=== PATIENT | male | born 1970 | race Caucasian/White ===

== ENCOUNTER 2022-03-15 09:47 | Day surgery (SDC) | payer OTHER ==
[2022-03-09 16:12] LABS: BASOPHILS # (AUTO) 0.1 X10'3 (0-0.2); EOSINOPHILS # (AUTO) 0.2 X10'3 (0-0.9); EOSINOPHILS % (AUTO) 2.5 % (0-6); LYMPHOCYTES % (AUTO) 30.4 % (21-51); MEAN CORPUSCULAR HEMOGLOBIN 31.1 PG (27.0-31.0); MEAN CORPUSCULAR HGB CONC 34.1 g/dL (33.0-36.5); MEAN CORPUSCULAR VOLUME 91.2 FL (78-98); MEAN PLATELET VOLUME 7.2 FL (7.4-10.4); MONOCYTES # (AUTO) 0.4 X10'3 (0-0.9); MONOCYTES % (AUTO) 6.5 % (2-12); NEUTROPHILS % (AUTO) 59.6 % (42-75); PRE OP HEMATOCRIT 49.2 % (42.0-52.0); PRE OP HEMOGLOBIN 16.8 g/dL (14.0-17.9); PRE OP PLATELET COUNT 273 X10'3 (140-440); RED CELL DISTRIBUTION WIDTH 12.5 % (11.5-14.5)
[2022-03-09 16:19] LABS: ALBUMIN 4.1 G/DL (3.4-5.0); ALBUMIN/GLOBULIN RATIO 1.2 (1.1-1.5); ALKALINE PHOSPHATASE 57 IU/L (46-116); BLOOD UREA NITROGEN 18 MG/DL (7-18); BUN/CREATININE RATIO 17.3 (5.4-32.0); CALCIUM 9.3 MG/DL (8.5-10.1); CHLORIDE 100 MMOL/L (99-107); CREATININE 1.04 MG/DL (0.60-1.10); PRE OP ALT 35 U/L (30-65); PRE OP ANION GAP 5 (8-16); PRE OP AST 27 U/L (10-37); PRE OP BILIRUB, TOTAL 0.5 MG/DL (0.0-1.0); PRE OP GLUCOSE 117 MG/DL (70-104); PRE OP POTASSIUM 3.9 MMOL/L (3.4-5.1); PRE OP SODIUM 135 MMOL/L (135-145); TOTAL PROTEIN 7.6 G/DL (6.4-8.2); eGFR 76 ML/MIN
[~2022-03-15] VITALS: Ht 180.3 cm; Wt 134.7 kg
[~2022-03-15 09:47] MED LIST: IBUP-1986 PO; TRAZ-256 PO; ceFAZolin inj. 2,000 MG in dextrose 5%-water 100 ML IV ONE; famotidine 20mg tablet PO ONE; ringers solution, lacted 1,000 ML IV SCH
--- NOTE | 2022-03-15 10:25 | NUR ---
pt prepared for surgery. Left hand iv started without difficulty. patient educated on preoperative education. pepcid given. pt instructed to call for assistance to the bathroom. significant other at bedside
[2022-03-15 11:44] VITALS: BP 138/88
[2022-03-15 11:45] VITALS: BP 138/88
[2022-03-15] MEDS ORDERED: LIDOcaine 1% 30ml preserv. free vial ONE (13:01)
[2022-03-15] MEDS ORDERED: BUPIVAcaine 0.5% inj/PF 30 ML ONE (13:01)
[2022-03-15] MEDS ORDERED: ketorolac trometh. 30mg/ml inj. ONE (13:01)
[2022-03-15] MEDS ORDERED: LIDOCAINE 1%/EPI 1:100,000 inj. 10 ML multi-dose vial ONE (13:01)
[2022-03-15] MEDS ORDERED: BUPIVAcaine/PF 5 mg/ml 10ml ONE (13:02)
[2022-03-15] MEDS ORDERED: morphine 2 MG/ML inj. syringe IV PRN (13:10)
[2022-03-15] MEDS ORDERED: ondansetron/PF 4mg/2ml inj IV PRN (13:10)
[2022-03-15] MEDS ORDERED: ringers solution, lacted 1,000 ML IV SCH (13:10)
[2022-03-15] MEDS ORDERED: hydrALAZINE 20mg/ml inj. IV PRN (13:10)
[2022-03-15] MEDS ORDERED: labetalol 20mg/4ml (5mg/ml) syringe IV PRN (13:10)
[2022-03-15] MEDS ORDERED: morphine 4 MG/ML inj SYRINge IV PRN (13:10)
[2022-03-15] MEDS ORDERED: fentaNYL/PF 50MCG/1 ML 2ML syringe IV PRN ×2 (13:10)
[2022-03-15] MEDS ORDERED: ROPIVAcaine 0.5% (5mg/ml) 30ml vial ONE (13:12)
[2022-03-15] MEDS ORDERED: LIDOcaine 2% (20mg/ml) 5ml vial ONE (13:18)
[2022-03-15] MEDS ORDERED: propofol inj 20 ML IV ONE (13:18)
[2022-03-15] MEDS ORDERED: MIDAZolam 1 MG/ML 5ML VIAL ONE (13:19)
[2022-03-15] MEDS ORDERED: FENTANYL CITRATE/PF 50 MCG/1 ML VIAL ONE (13:19)
[2022-03-15 15:03] VITALS: BP 123/77
--- NOTE | 2022-03-15 15:03 | NUR ---
Received from OR via [facility], accompanied by Anesthesiologist and report given by [facility] Anesthesiologist. PATIENT WAKING UP, DENIES PAIN, V/S WNL, 20G TO LEFT HAND, drsg to RIGHT KNEE C/D/I. Addendum: 03/15/22 at 1548 by Micky Urbina RN Amended: Links added.
[2022-03-15 15:10] VITALS: BP 131/79
[2022-03-15] MEDS ORDERED: HYDROcodone/acetaminophen 10/325mg tab PO PRN (15:15)
[2022-03-15 15:20] VITALS: BP 122/97
== END 2022-03-15 15:33 | disposition home or self-care (01) ==
LOC: PAS 09:47
PROVIDERS: ATTEND Orthopaedic Surgery
DX: S83.281A Other tear of lateral meniscus, current injury, right knee, initial encounter (principal); M17.31 Unilateral post-traumatic osteoarthritis, right knee; M94.261 Chondromalacia, right knee; G47.30 Sleep apnea, unspecified; M19.90 Unspecified osteoarthritis, unspecified site; X58.XXXA Exposure to other specified factors, initial encounter; Y93.89 Activity, other specified; Y92.89 Other specified places as the place of occurrence of the external cause; Y99.8 Other external cause status; Z98.890 Other specified postprocedural states; Z86.14 Personal history of Methicillin resistant Staphylococcus aureus infection; Z79.899 Other long term (current) drug therapy; Z72.89 Other problems related to lifestyle
CPT/HCPCS: 29881; 36415; 80053; 85025; J0690; J1885; J2250; J2704; J2795; J3010; J3490; J7060; J7120; S0020; Z7506; Z7508; Z7512; A4215; A6449; A7000